=== PATIENT | male | born 1950 | race Caucasian/White ===

== ENCOUNTER → 2016-11-25 | Outpatient (CLI) | payer OTHER ==
--- NOTE | 2016-11-25 12:48 | DX ---
Left Wrist, 2 views History: Chronic lateral pain, no known trauma, M45.6, M25.532 Comparison: None Findings: There is a 1 cm, degenerative subcortical cyst involving the distal palmar lateral corner o f the radius, adjacent to the distal radial ulnar articulation. There is mild cortical irregularity o f the proximal lateral lunate pole consistent with remote trauma. There is mild widening of the scaph olunate joint consistent with a partial tear or instability of the scapholunate joint. There is asmal l degenerative cyst in the proximal capitate. There is severe osteoarthritis at the base of the thum b right suspect there is an old fracture deformity of the proximal first metacarpal. The distal ulna looks normal. Impression: Multifocal degenerative changes described above.
--- NOTE | 2016-11-25 14:23 | DX ---
Lumbar Spine, 2 standing views History: Back pain x5 years without trauma, history of ankylosing spondylitis Comparison: CT June 23, 2011 Findings: There are 6 lumbarized vertebral bodies, the highest of which will be considered T12 for th e purposes of this report. There are bilateral marginal disk space osteophytes from T11 to L5 greates t to the left of midline at L1-L2. Alignment on the AP view is normal. On the lateral view there are mild retrolisthesis present between T11 and L4. There is a 10 mm spondylolisthesis at L5-S1. All disk spaces below T12 are narrowed with vacuum phenomenon present at L1-L2and L3-L4. There are prominent marginal disk space anterior osteophytes present between L1 and S1. The bones are well-mineralized. Impression: Multilevel spondylosis. No obvious evidence of ankylosing spondylitis in the lumbar spine .
== END ==
LOC: FIMAGING 11:30
PROVIDERS: ATTEND Family Medicine
DX: M47.896 Other spondylosis, lumbar region (principal); M19.032 Primary osteoarthritis, left wrist; M43.17 Spondylolisthesis, lumbosacral region; M51.85 Other intervertebral disc disorders, thoracolumbar region

== ENCOUNTER → 2017-05-26 | Outpatient (CLI) | payer OTHER | LOC: FLAB 12:17 | PROVIDERS: ATTEND Physician Assistant | DX: J98.4 Other disorders of lung (principal) ==

== ENCOUNTER → 2017-06-02 | Outpatient (CLI) | payer OTHER | LOC: FIMAGING 10:35 | PROVIDERS: ATTEND Physician Assistant | DX: M54.2 Cervicalgia (principal) ==

== ENCOUNTER → 2018-07-27 | Outpatient (CLI) | payer OTHER | LOC: FIMAGING 08:00 | PROVIDERS: ATTEND Internal Medicine Cardiovascular Disease | DX: I71.2 Thoracic aortic aneurysm, without rupture (principal); R91.8 Other nonspecific abnormal finding of lung field; K76.0 Fatty (change of) liver, not elsewhere classified; K80.20 Calculus of gallbladder without cholecystitis without obstruction ==